=== PATIENT | male | born 1955 | race Caucasian/White ===

== ENCOUNTER 2018-11-23 18:32 | Inpatient (IN) ==
[2018-11-23] MEDS ORDERED: Famotidine PF Inj 20 MG/2 ML Vial IV.PUSH ONE (19:17)
[2018-11-23] MEDS ORDERED: Sod Chloride 0.9% Inj 1,000 ML IV.SIG ONE (19:17)
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
[2018-11-23 19:42] LABS: Baso % (Auto) 1.5 % (0.0-2.0); Eos % (Auto) 0.5 % (0.0-4.0); Hematocrit 43.1 % (39.0-51.0); Lymph # (Auto) 1.4 th/mm3 (1.0-4.8); Lymph % (Auto) 44.1 % (9.0-44.0); Mean Corpuscular HGB Conc 34.8 % (32.0-36.0); Mean Corpuscular Hemoglobin 31.9 pg (27.0-34.0); Mean Corpuscular Volume 91.5 fL (80.0-100.0); Mean Platelet Volume 9.3 fL (7.0-11.0); Mono # (Auto) 0.5 th/mm3 (0.0-0.9); Mono % (Auto) 18.1 % (0.0-8.0); Neut # (Auto) 1.1 th/mm3 (1.8-7.7); Neut % (Auto) 35.8 % (16.0-70.0); Platelet Count 76 th/mm3 (150-450); Red Blood Count 4.71 mil/mm3 (4.50-5.90)
[2018-11-23 19:51] LABS: Chloride 107 meq/L (98-107); Potassium 3.6 meq/L (3.5-5.1); Sodium 135 meq/L (136-145)
[2018-11-23 19:55] LABS: Albumin 3.3 g/dL (3.4-5.0); Anion Gap 8 meq/L (5-15); Blood Urea Nitrogen 46 mg/dL (7-18); Calcium 8.2 mg/dL (8.5-10.1); Carbon Dioxide 20.3 meq/L (21.0-32.0); Glucose,Random 97 mg/dL (74-106); Lipase 296 U/L (73-393)
[2018-11-23 19:58] LABS: Alanine Aminotransferase 141 U/L (12-78); Aspartate Aminotransferase 79 U/L (15-37); Glomerular Filtration Rate 34 mL/min (>89)
[2018-11-23 20:01] LABS: Alkaline Phosphatase 104 U/L (45-117)
[2018-11-23] MEDS ORDERED: Acetaminophen 325 MG Tablet PO PRN (20:24)
[2018-11-23] MEDS ORDERED: Bisacodyl 10 MG Supp RECTAL PRN (20:24)
[2018-11-23 20:44] LABS: Platelet Morphology Normal (Normal)
[2018-11-23] MEDS: Sod Chloride 0.9% Inj 1,000 ML IV.CONT SCH (21:00)
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
[2018-11-23] MEDS: Senna/Docusate Sodium 8.6/50 MG Tablet PO SCH (22:10)
[2018-11-23 23:12] LABS: Bilirubin,Urine Negative (Negative); Clarity,Urine Clear (Clear); Color,Urine Yellow (Yellw/Straw); Glucose,Urine (UA) Negative (Negative); Leukocyte Esterase,Urine Negative (Negative); Nitrite,Urine Negative (Negative); PH,Urine 5.5 (5.0-8.5); Specific Gravity,Urine Greater/Equal 1.030 (1.002-1.035); Urobilinogen,Urine 0.2 mg/dL (Less than 2)
[2018-11-23 23:22] LABS: Squamous Epithelial Cell,Urine 0-5 /hpf (0-5); WBC,Urine 0-5 /hpf (0-5)
[2018-11-24 06:49] LABS: Chloride 112 meq/L (98-107); Potassium 3.6 meq/L (3.5-5.1); Sodium 142 meq/L (136-145)
[2018-11-24 06:54] LABS: Calcium 7.6 mg/dL (8.5-10.1)
[2018-11-24 06:55] LABS: Albumin 2.8 g/dL (3.4-5.0); Anion Gap 6 meq/L (5-15); Blood Urea Nitrogen 41 mg/dL (7-18); Carbon Dioxide 23.6 meq/L (21.0-32.0); Glucose,Random 87 mg/dL (74-106)
[2018-11-24 06:56] LABS: Baso % (Auto) 1.9 % (0.0-2.0); Eos % (Auto) 0.6 % (0.0-4.0); Hematocrit 39.3 % (39.0-51.0); Hemoglobin 13.8 gm/dL (13.0-17.0); Lymph # (Auto) 1.6 th/mm3 (1.0-4.8); Lymph % (Auto) 58.6 % (9.0-44.0); Mean Corpuscular HGB Conc 35.2 % (32.0-36.0); Mean Corpuscular Hemoglobin 32.5 pg (27.0-34.0); Mean Corpuscular Volume 92.3 fL (80.0-100.0); Mean Platelet Volume 9.6 fL (7.0-11.0); Mono # (Auto) 0.3 th/mm3 (0.0-0.9); Neut # (Auto) 0.6 th/mm3 (1.8-7.7); Neut % (Auto) 24.9 % (16.0-70.0); Platelet Count 55 th/mm3 (150-450); Red Blood Count 4.26 mil/mm3 (4.50-5.90); Red Cell Distribution Width 13.1 % (11.6-17.2); White Blood Count 2.5 th/mm3 (4.0-11.0)
[2018-11-24 06:58] LABS: Alanine Aminotransferase 112 U/L (12-78); Aspartate Aminotransferase 65 U/L (15-37); Glomerular Filtration Rate 41 mL/min (>89)
[2018-11-24 07:00] LABS: Total Protein 6.9 g/dL (6.4-8.2)
[2018-11-24 07:01] LABS: Alkaline Phosphatase 80 U/L (45-117)
[2018-11-24 07:34] LABS: Lymphocytes 59 % (9-44); Monocytes 12 % (0-8); Platelet Morphology Normal (Normal)
[2018-11-24] MEDS: Sod Chloride 0.9% Inj 1,000 ML IV.CONT SCH ×2 (08:34→15:09)
[2018-11-24] MEDS: Senna/Docusate Sodium 8.6/50 MG Tablet PO SCH ×2 (08:35→20:49)
[2018-11-24] MEDS ORDERED: Pantoprazole Inj 40 MG Vial IV.PUSH SCH (09:00)
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
[2018-11-24 13:28] LABS: Hemoglobin 12.8 gm/dL (13.0-17.0)
[2018-11-24] MEDS ORDERED: Pantoprazole Inj 80 MG in Sodium Chlor 0.9% Inj 35 ML IV.SIG ONE (13:30)
[2018-11-24] MEDS ORDERED: Pantoprazole Inj 80 MG in Sodium Chlor 0.9% Inj 100 ML IV.CONT SCH (14:00)
[2018-11-24] MEDS ORDERED: Octreotide Inj 500 MCG in Sodium Chlor 0.9% Inj 500 ML IV.CONT SCH (14:00)
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
[2018-11-24 22:33] LABS: Hepatitis A IgM Antibody Nonreactive (Nonreactive); Hepatitits B Surface Antigen Nonreactive (Nonreactive)
[2018-11-25] MEDS ORDERED: Pantoprazole Inj 80 MG in Sodium Chlor 0.9% Inj 100 ML IV.CONT SCH (04:00)
[2018-11-25] MEDS: Sod Chloride 0.9% Inj 1,000 ML IV.CONT SCH ×2 (04:08→10:27)
[2018-11-25 06:57] LABS: Baso % (Auto) 0.6 % (0.0-2.0); Hematocrit 39.8 % (39.0-51.0); Hemoglobin 13.4 gm/dL (13.0-17.0); Lymph # (Auto) 1.7 th/mm3 (1.0-4.8); Lymph % (Auto) 54.5 % (9.0-44.0); Mean Corpuscular HGB Conc 33.7 % (32.0-36.0); Mean Corpuscular Hemoglobin 31.3 pg (27.0-34.0); Mean Corpuscular Volume 92.9 fL (80.0-100.0); Mean Platelet Volume 8.7 fL (7.0-11.0); Mono # (Auto) 0.3 th/mm3 (0.0-0.9); Mono % (Auto) 11.5 % (0.0-8.0); Neut # (Auto) 0.9 th/mm3 (1.8-7.7); Neut % (Auto) 32.4 % (16.0-70.0); Platelet Count 45 th/mm3 (150-450); Red Blood Count 4.28 mil/mm3 (4.50-5.90); Red Cell Distribution Width 13.3 % (11.6-17.2); White Blood Count 2.9 th/mm3 (4.0-11.0)
[2018-11-25 07:34] LABS: Eosinophils 1 % (0-4); Lymphocytes 51 % (9-44); Monocytes 9 % (0-8); RBC Morphology Normal (Normal)
[2018-11-25 07:35] LABS: Platelet Morphology Normal (Normal)
[2018-11-25 08:16] VITALS: RESP 20
[2018-11-25] MEDS: Senna/Docusate Sodium 8.6/50 MG Tablet PO SCH (09:02)
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
--- NOTE | 2018-11-25 10:12 | P.PNGI ---
Subjective Interval history: November 25, 2018 Mr. Ly is now doing better. He is ready to be discharged home. The plan was for him to have an upper endoscopy and colonoscopy but this can be done as an outpatient. He reports he is feeling better with no further nausea vomiting has subsided per the patient. The chart has been reviewed. The plan is been discussed with the hospitalist. November 24, 2018 Mr. Ly is a 63-year-old gentleman who basically presented with a 1-day history of nausea, vomiting, abdominal pain and diarrhea. These symptoms have now resolved. He still has some abdominal pain, however. A CT scan on admission shows diverticulosis changes consistent with chronic pancreatitis and gallstones. His liver functions are elevated, but he does have a strong history of alcohol use. He says he stopped drinking about a week ago when he was not feeling well. He states he has quit alcohol in the past, but has restarted again. He states he has been otherwise healthy. He has not seen a medical doctor he says for the last 30 years. Physical Exam Vital signs: Vital Signs 11/24/18 12:00 11/24/18 16:00 11/24/18 20:00 Temperature 99.3 F 98.2 F 98.9 F Pulse Rate 65 61 60 Respiratory Rate 20 20 20 Blood Pressure 156/104 H 163/106 H 151/94 H Pulse Oximetry 96 95 95 11/25/18 00:00 11/25/18 03:49 11/25/18 08:00 Temperature 98.0 F 97.1 F L Pulse Rate 57 L 60 Respiratory Rate 18 20 Blood Pressure 140/92 H 146/90 H 122/87 Pulse Oximetry 94 L 96 Intake & Output 11/24/18 11/25/18 11/25/18 18:59 06:59 18:59 Intake Total 1600 / 1600 2100 / 2100 494 / 494 Balance 1600 / 1600 2100 / 2100 494 / 494 Weight 88.2 kg Intake: IV 1600 / 1600 1100 / 1100 Protonix Inj 80 MG In NS Inj 100 / 100 100 ML @ 10 mls/hr IV.CONT CONT SIMEON Rx#:[id number] NS Inj 1,000 ML @ 125 mls/hr IV 1600 / 1600 1000 / 1000 .CONT .Q8H SIMEON Rx#:[id number] Oral 494 / 494 Other 1000 / 1000 Other: Other Intake Source Saline Solution # Voids 4 3 # Bowel Movements 2 - Routine HEENT Exam Eye: Present: EOMI, PERRL ENT: Present: mucous membranes moist - Routine Neck Exam Present: supple, full ROM - Routine Abdominal Exam Present: soft, normoactive bowel sounds - Routine Skin Exam Present: intact Results - Labs CBC & Chem 7: 11/25/18 06:44 11/24/18 05:25 Laboratory Results - last 24 hr 11/24/18 11/24/18 11/25/18 13:11 17:58 06:44 CBC w Diff Slide review pending WBC 2.9 L RBC 4.28 L Hgb 12.8 L 13.4 Hct 38.0 L 39.8 MCV 92.9 MCH 31.3 MCHC 33.7 RDW 13.3 Plt Count 45 L MPV 8.7 Neut % (Auto) 32.4 Lymph % (Auto) 54.5 H [place] % (Auto) 11.5 H Eos % (Auto) 1.0 Baso % (Auto) 0.6 Neut # (Auto) 0.9 L Lymph # (Auto) 1.7 [place] # (Auto) 0.3 Eos # (Auto) 0.0 Baso # (Auto) 0.0 WBC Differential Manual diff final Seg Neuts % (Manual) 35 Band Neuts % (Manual) 4 Lymphocytes % (Manual) 51 H Monocytes % (Manual) 9 H Eosinophils % (Manual) 1 Abs Neuts (Manual) 1.1 L Differential Comment . Platelet Estimate Low L Platelet Morphology Normal RBC Morphology Normal Hepatitis A IgM Ab Nonreactive Hep Bs Antigen Nonreactive Hep B Core IgM Ab Nonreactive Hep C IgG Ab Reactive H Assessment and Plan - Plan As discussed with the hospitalist, patient will be discharged home. Patient will contact our office on Tuesday to schedule his upper endoscopy and colonoscopy as an outpatient. Consideration for cholecystectomy can be reviewed at the time of his outpatient visit due to his history of gallstones. Standard dietary recommendations for shoe diverticulosis of provided. Laboratory profile will need to be followed up as an outpatient that was ordered during his hospitalization.
[2018-11-25 12:48] VITALS: BP 170/103; PULSE 63; TEMP 99.1; O2SAT 98
== END 2018-11-25 12:13 | disposition home or self-care (01) | DRG 683 ==
LOC: PHED 18:32 → PHEDA 20:31 → PH3 22:25
PROVIDERS: ADMIT Hospitalist; ATTEND Hospitalist
CPT/HCPCS: 74176; 76775; 80053; 80074; 81001; 83690; 85014; 85018; 85025; 90761; 90774; 90775; 96361; 96374; 96375; 99285; C8952; C9113; J2354; J2405; J7030; J7040